=== PATIENT | male | born 1990 | race Caucasian/White ===

== ENCOUNTER 2022-12-27 09:19 | Outpatient (CLI) | payer OTHER, SELFPAY | END 2022-12-27 09:20 | disposition home or self-care (01) | PROVIDERS: PCP Family Medicine; Visit Provider Family Medicine | DX: E55.9 Vitamin D deficiency, unspecified (principal); Z79.899 Other long term (current) drug therapy; Z00.00 Encounter for general adult medical examination without abnormal findings; Z11.3 Encounter for screening for infections with a predominantly sexual mode of transmission; R53.83 Other fatigue; Z13.6 Encounter for screening for cardiovascular disorders; Z13.21 Encounter for screening for nutritional disorder; Z78.9 Other specified health status | CPT/HCPCS: 80053; 80061; 82306; 82607; 82728; 86592; 86703; 86706; 86803; 87340; 87491; 87591 ==

== ENCOUNTER 2023-01-08 16:04 | Outpatient (CLI) | payer OTHER, SELFPAY | END 2023-01-08 16:05 | disposition home or self-care (01) | LOC: NFLDREF 01-10 08:54 | PROVIDERS: PCP Family Medicine; Referring Provider Family Medicine; Visit Provider Family Medicine | DX: Z11.3 Encounter for screening for infections with a predominantly sexual mode of transmission (principal) | CPT/HCPCS: 87491; 87591 ==